=== PATIENT | male | born 1950 | race Caucasian/White ===

== ENCOUNTER 2022-01-19 12:20 | Inpatient (IN) | payer OTHER ==
[~2022-01-19] VITALS: Ht 177.8 cm; Wt 90.7 kg
[2022-01-19] MEDS ORDERED: AMLO10TA59 PO (12:30)
--- NOTE | 2022-01-19 12:31 | NUR ---
Patient ambulated to his with steady gait, no ataxia seen, c/o severe dizziness earlier prior to arrival to ER. Patient said that he can not even walk earlier 2/2 dizziness He is c/o headaches, now about 5/10 pain scale. His respiration:easy, nonlabored, even and symmetrical. All extremities have equal strength.
[2022-01-19] MEDS ORDERED: METOCLOPRAMIDE HCL 10 MG/2 ML VIAL IV ONE (12:45)
[2022-01-19] MEDS ORDERED: IV NORMAL SALINE 500 ML BAG IV ONE (12:45)
[2022-01-19] MEDS ORDERED: ACETAMINOPHEN 325 MG TABLET PO ONE (12:45)
[2022-01-19] MEDS ORDERED: METOCLOPRAMIDE HCL 10 MG/2 ML VIAL ONE (12:53)
[2022-01-19] MEDS ORDERED: ACETAMINOPHEN 325 MG TABLET ONE (12:53)
[2022-01-19 12:56] LABS: HEMATOCRIT 39.1 % (36.7-47.1); MEAN CORPUSCULAR HEMOGLOBIN 28.8 uug (23.8-33.4); MEAN CORPUSCULAR VOLUME 84.7 fL (73.0-96.2); PLATELET COUNT (AUTO) 236 K/uL (152-348)
[2022-01-19 13:01] LABS: CREATININE 0.8 mg/dL (0.6-1.3); POTASSIUM 3.6 mmol/L (3.5-5.1)
[2022-01-19 13:07] LABS: BILIRUBIN,TOTAL 0.4 mg/dL (0.2-1.0); TOTAL PROTEIN, SERUM 7.1 g/dL (6.4-8.2)
--- NOTE | 2022-01-19 13:39 | NUR ---
PT DOES NOT REMEMBER ALL HIS HOME MEDICATION NAMES AND DOSAGES.
--- NOTE | 2022-01-19 13:59 | NUR ---
Patient said that he feels much better but still "a little bit dizzy." Patient was able to walk in slow steady gait, denies nausea, calm & breathing easily.
--- NOTE | 2022-01-19 14:11 | NUR ---
after walking to the bathroom to void, patient had one emesis (yellowish gastric contents), MD notified. Comfort and safety measures maintained. EVS was called to clean the vomit on the floor & inside the garbage container.
--- NOTE | 2022-01-19 14:40 | NUR ---
Admitting staff Mi notified re: plan to admit
[2022-01-19 14:46] LABS: *BILIRUBIN,URIN NEGATIVE (NEGATIVE); *BLOOD, URINE NEGATIVE (NEGATIVE); *CLARITY,URINE CLEAR (CLEAR); *COLOR,URINE YELLOW (YELLOW); *KETONES,URINE NEGATIVE (NEGATIVE); *UROBILINOGEN,URINE 0.2 E.U./dl (NORMAL); LEUKOCYTE ESTERASE ,URINE NEGATIVE (NEGATIVE); NITRITE, URINE NEGATIVE (NEGATIVE); PH,URINE 6.5 (5.0-8.0); UGLUCOSE NEGATIVE (NEGATIVE)
[2022-01-19] MEDS ORDERED: ONDANSETRON 4 MG/2 ML VIAL IV ONE (15:00)
[2022-01-19] MEDS ORDERED: ONDANSETRON 4 MG/2 ML VIAL ONE (15:06)
--- NOTE | 2022-01-19 15:08 | NUR ---
Note maria elena in EDM - 01/19/22 at 1513 by MALISSA IV removed. Catheter intact and site benign. Pressure and 4x4 gauze applied to site. No bleeding noted. Copies of all tests' results were provided to patient. Patient discharged to home in stable condition with steady gait . Written and verbal after care instructions given to patient with British per diem interpreter MICHAELA Chan. Patient verbalized understanding and compliance of instructions. Stressed follow up with her primary doctor as soon as possible or return to ER for worsening s/s.
--- NOTE | 2022-01-19 15:21 | NUR ---
Patient is resting comfortably on gurney while using his personal cellphone, NAD, calm and breathing easily.
--- NOTE | 2022-01-19 15:31 | NUR ---
Per Lakisha (patient's medical insurance claims [email or web address]), this patient had hx of benign neoplasm of the meninges and had CT guided biopsy of left lateral L4-L5 lesion last July 2016. notified.
--- NOTE | 2022-01-19 16:05 | NUR ---
Patient is for possible transfer to another acute hospital ([facility]), pending callback from patient's case mgr at [facility] for complete transfer information at this time. No acute change in patient's condition seen.
--- NOTE | 2022-01-19 17:05 | NUR ---
Per Denise (our ER admitting staff), "We did repeat calls to request for transfer information updates from patient's insurance representative.", pending callback from [facility] telephonic nurse case manager at this time.
--- NOTE | 2022-01-19 17:59 | NUR ---
Patient is accepted by [facility] hospitalist . Patient is admitted to telemetry room 315, under the care of Dr. Olivier. Belongings list completed, pending callback from an accepting 3rd floor telemetry nurse@this time.
--- NOTE | 2022-01-19 18:03 | NUR ---
Connect ID [id number] for teleneurology consult per Dr king's request.
--- NOTE | 2022-01-19 18:35 | NUR ---
Teleneurology consult was done, pending admitting papers@this time.
[2022-01-19] MEDS ORDERED: IV NORMAL SALINE 250 ML IV ONE (18:43)
[2022-01-19] MEDS ORDERED: IOHEXOL 350 100 ML INFUS..BTL ONE (18:43)
[2022-01-19] MEDS ORDERED: SWABABLE VALVE TRANSFER SET EA MC ONE (18:43)
[2022-01-19 19:06] VITALS: BP 157/62
[2022-01-19 20:15] VITALS: BP 157/62
[2022-01-19] MEDS ORDERED: ACETAMINOPHEN 325 MG TABLET PO PRN (22:00)
[2022-01-19] MEDS ORDERED: MAGNESIUM HYDROXIDE 30 ML LIQUID UDC PO PRN (22:00)
[2022-01-19] MEDS ORDERED: ZOLPIDEM 5 MG TABLET PO PRN (22:00)
[2022-01-19] MEDS ORDERED: REMEDY ESSENTIAL ZINC PASTE 113 GM TP PRN (22:00)
[2022-01-19] MEDS ORDERED: ONDANSETRON 4 MG/2 ML VIAL IV PRN (22:00)
[2022-01-19 22:59] LABS: THYROID STIMULATING HORMONE 2.217 mIU/mL (0.358-3.740)
[2022-01-20] MEDS ORDERED: BLOOD SUGAR DIAGNOSTIC 1 EACH STRIP VI SCH
[2022-01-20 00:06] VITALS: BP 133/48
[2022-01-20 04:20] VITALS: BP 134/46
--- NOTE | 2022-01-20 05:43 | NUR ---
TEXT DR. OCASIO FOR MRI APPROVAL.
--- NOTE | 2022-01-20 05:44 | NUR ---
Pt resting in bed. Able to make needs known. No distress noted. Denies SOB, chest pain or headache at this time. Denies N/V. IV site intact. Passed nursing swallow eval. Will endorse to day shift.
[2022-01-20 06:35] LABS: HEMATOCRIT 37.6 % (36.7-47.1); MEAN CORPUSCULAR HEMOGLOBIN 28.9 uug (23.8-33.4); MEAN CORPUSCULAR VOLUME 85.4 fL (73.0-96.2); PLATELET COUNT (AUTO) 215 K/uL (152-348)
[2022-01-20 06:46] LABS: CREATININE 0.7 mg/dL (0.6-1.3); MAGNESIUM 2.2 mg/dL (1.8-2.4); PHOSPHOROUS 3.2 mg/dL (2.5-4.9); POTASSIUM 3.3 mmol/L (3.5-5.1)
[2022-01-20] MEDS: BLOOD SUGAR DIAGNOSTIC 1 EACH STRIP VI SCH ×3 (06:56→16:30)
[2022-01-20] MEDS ORDERED: POTASSIUM CHLORIDE 10 MEQ TAB.PRT.SR PO ONE (08:30)
[2022-01-20] MEDS ORDERED: ASPIRIN EC 325 MG TABLET.DR PO SCH (09:00)
[2022-01-20] MEDS ORDERED: OLME1TAB22 PO (10:26)
--- NOTE | 2022-01-20 10:55 | NUR ---
pt went to [facility] for mri in stable condition
[2022-01-20 11:23] VITALS: BP 142/56
--- NOTE | 2022-01-20 12:20 | NUR ---
pt came back from mri via ambulances in stable condition
[2022-01-20 15:55] VITALS: BP 139/59
[2022-01-20] MEDS ORDERED: ASPI81TA31 PO (17:05)
[2022-01-20] MEDS ORDERED: ATOR20TA PO (17:05)
--- NOTE | 2022-01-20 17:34 | NUR ---
DC ORDERS RECEIVED NOTED AND CARRIED OUT,DC HEPLOCK PER MD ORDERS,DC INSTRUCTION AND EDUCATION GIVEN TO THE PT .PT SAID HE WILL FOLLOW UP WITH HIS PCP .PT LEFT THE FACILITY VIA PRIVATE CAR IN STABLE CONDITION
== END 2022-01-20 17:36 | disposition home or self-care (01) | DRG 103 ==
LOC: ER 12:21 → TELE3 18:35
PROVIDERS: ADMIT Family Medicine; ATTEND Family Medicine
DX: R51.9 Headache, unspecified (principal); D72.829 Elevated white blood cell count, unspecified; E11.65 Type 2 diabetes mellitus with hyperglycemia; E87.6 Hypokalemia; I10 Essential (primary) hypertension; R27.0 Ataxia, unspecified; Z20.822 Contact with and (suspected) exposure to COVID-19
CPT/HCPCS: 36415; 70030-TC; 70450; 70496; 70551; 71045; 83735; 84100; 84443; 85025; 85651; 85730; 93005; 93307; 97161; A4663; G0378; J2405; J2765; J7030; J7050; Q9967